=== PATIENT | male | born 1965 | race Asian ===

== ENCOUNTER → 2021-03-28 07:37 | Outpatient (CLI) | payer OTHER, SELFPAY ==
--- NOTE | ~2021-03-28 | US_ITS ---
EXAMINATION: US abdomen complete EXAM DATE: 03/28/2021 08:17 INDICATION: High bilirubin . TECHNIQUE: Multiple grayscale and Doppler images of the complete abdomen were obtained (by a technolo gist who performed the scan) and subsequently reviewed. There is no prior study for comparison. FINDINGS: The abdominal aorta is normal in caliber. Visualized portion IVC is patent. The pancreatic head a nd body are normal in appearance. The pancreatic tail is not visualized. The liver has normal echogenicity and contour. There are no focal liver lesions identified. There is no evidence of intrahepatic biliary duct dilation. Portal venous flow was seen in the hepatopedal , normal direction and has normal Doppler waveform. Common bile duct measures 3 mm, which is normal. The gallbladder wall is normal in thickness, with ex pected amount of distention. No sonographic evidence of pericholecystic fluid. There is no cholelit hiases. Technologist performing exam reports patient did not demonstrate sonographic Cameron's sign. Please note that this sign is less reliable in patients who have received pain medication. Right kidney: There is normal contour and echogenicity. It measures 11.7 x 5.0 x 6.3 centimeters. T here is a 1.8 cm cyst. There is no hydronephrosis. Left kidney: There is normal contour and echogenicity. It measures 13.3 x 5.3 x 5.6 centimeters. T here are no focal renal lesions identified. There is no hydronephrosis. The spleen measures 9.6 centimeters and is morphologically normal. IMPRESSION: Unremarkable complete abdominal ultrasound exam. Reviewed, dictated and finalized at location A. [employer]ATER
== END ==
PROVIDERS: PCP Emergency Medicine; Visit Provider Emergency Medicine
DX: E80.6 Other disorders of bilirubin metabolism (principal)
CPT/HCPCS: 76700

== ENCOUNTER 2022-02-26 02:15 | Day surgery (SDC) | payer OTHER, SELFPAY ==
[2022-02-07 15:08] VITALS: BMI 25.8
[2022-02-26 06:46] VITALS: BP 152/101; PULSE 89; RESP 16; TEMP 36.4; O2SAT 100; BMI 25.8
[2022-02-26] MEDS: LACTATED RINGERS 1,000 ML 150 ML IV CONT (06:55)
--- NOTE | 2022-02-26 07:32 | WPDANESEPPF ---
Anes - Initial Pre Proc Eval Procedure: Operation Date: 02/26/22 08:00 Proposed Procedures p Screening Colonoscopy - Jaylan Guo MD Date/Time: 02/26/22 07:32 Surgeon: Jaylan Guo MD Pre Op Diagnosis: hx colon polyps Patient Data Age: 56 Gender: M Height: 1.73 m Weight: 77.1 kg Last Vital Signs Temp 36.4 C L 02/26/22 06:46 Pulse 89 02/26/22 06:46 Resp 16 02/26/22 06:46 BP 152/101 H 02/26/22 06:46 Pulse Ox 100 02/26/22 06:46 O2 Del Method Room Air 02/26/22 06:46 Allergies Allergy/AdvReac Type Severity Reaction Status Date / Time No Known Drug Allergies Allergy Unknown Unknown Verified 02/26/22 06:45 Home Medications Medication Instructions Recorded Confirmed Type rosuvastatin 10 mg tablet 10 mg PO DAILY 02/07/22 02/26/22 History Patient hx anesthesia problems: none Family hx anesthesia problems: none Results Review: All pre-operative results and documents have been reviewed as part of the pre-operative evaluation. [facility] Past Medical History Medical History (Updated 02/26/22 @ 07:35 by Mark Talley MD) Hyperlipidemia Surgical History Surgical History (Updated 02/26/22 @ 07:35 by Mark Talley MD) H/O colonoscopy History of appendectomy Social History Social History Smoking status: Never smoker Alcohol intake: current Substance use: never Substance use type: does not use Living arrangements: with family Spiritual care concerns: No Anes - Eval Final PreProcedure Day of Procedure 02/26/22 07:32 Patient weight: normal Heart: regular rate and rhythm Lungs: clear to auscultation Airway: Mallampati scale class II Neurological: alert and oriented Last oral intake: >/= 8 hours ASA classification: II Emergent: no Anesthetic plan: proceed Anesthesia type and monitoring: general GIVS and standard monitoring Results Review: All pre-operative results and documents have been reviewed as part of the pre-operative evaluation. Informed Consent: The patient's anesthetic plan and its attendant risks and benefits were discussed with the patient/family/POA. Questions were solicited and answers provided to the satisfaction of the patient/family/POA.
--- NOTE | 2022-02-26 07:44 | PM.HPGS ---
History of Present Illness History of Present Illness Consent: Risks, benefits, and alternatives have been discussed and questions answered. Patient agrees to proceed with procedure. Chief complaint: hx colon polyps Narrative: Sabino Carson is a 56 year old male here for screening colonoscopy, had polyps in 2019 Review of Systems Constitutional: Constitutional: Denies headache(s) and Denies weakness Eyes: Eyes: Denies blurry vision ENT: Reports Normal hearing present, Denies headache(s) and Denies neck pain Cardiovascular: Cardiovascular: Denies chest pain and Denies dyspnea Respiratory: Respiratory: Denies dyspnea Gastrointestinal: Gastrointestinal: Reports no additional gastrointestinal complaints Genitourinary: Genitourinary: Denies dysuria Musculoskeletal: Musculoskeletal: Denies neck pain Integumentary/Breasts: Skin/Breast: Denies dry skin Neurologic: Reports Normal hearing present, Denies headache(s) and Denies weakness Psychiatric: Psychiatric: Denies anxiety Endocrine: Endocrine: Denies change in body appearance Hematologic/Lymphatic: Hematologic/Lymphatic: Denies easy bleeding Allergic/Immunologic: Allergic/Immunologic: Denies urticaria PMFSH Past Medical History Medical History (Updated 02/26/22 @ 07:45 by Jaylan Guo MD) Colon cancer screening Hyperlipidemia Surgical History Surgical History (Updated 02/26/22 @ 07:35 by Mark Talley MD) H/O colonoscopy History of appendectomy Social History Social History Smoking status: Never smoker Alcohol intake: current Substance use: never Substance use type: does not use Living arrangements: with family Spiritual care concerns: No Meds Home Medications and Allergies Home Medications Medication Instructions Recorded Confirmed Type rosuvastatin 10 mg tablet 10 mg PO DAILY 02/07/22 02/26/22 History Allergies Allergy/AdvReac Type Severity Reaction Status Date / Time No Known Drug Allergies Allergy Unknown Unknown Verified 02/26/22 06:45 Vital Signs Vital Signs - 24 hr 02/26/22 06:46 Temperature 97.5 F L Pulse Rate 89 Respiratory Rate 16 Blood Pressure 152/101 H Pulse Oximetry 100 Oxygen Delivery Room Air Exam Const: General: comfortable and no acute distress HENMT: Face/Nose/Sinus: Normal nares present Eyes: General: appearance normal, both eyes and all related structures Neck: Neck: no JVD Resp: Auscultation: clear to auscultation bilaterally Cardio: Rate: regular rate Rhythm: regular rhythm GI: Inspection: non-distended GI Palp: Yes Soft to palpation Skin: General skin exam: normal color Neuro: General: gait normal Speech: normal speech Extrem: General: normal to inspection Psych: Mental Status: mental status grossly normal Assessment and Plan Assessment and plan (1) Colon cancer screening: Code(s): Z12.11 - Encounter for screening for malignant neoplasm of colon Status: Acute Assessment and Plan: colonoscopy
[2022-02-26 08:06] VITALS: BP 111/75; PULSE 75; RESP 26; O2SAT 98
[2022-02-26 08:16] VITALS: BP 120/85; PULSE 70; RESP 18; O2SAT 98
[2022-02-26 08:26] VITALS: BP 127/90; PULSE 71; RESP 14; O2SAT 98
== END 2022-02-26 08:35 | disposition home or self-care (01) ==
PROVIDERS: PCP Emergency Medicine; Visit Provider Internal Medicine Gastroenterology
PROC: 0DJD8ZZ Inspection of Lower Intestinal Tract, Via Natural or Artificial Opening Endoscopic (ICD-10-PCS; CPT 45378; principal; 2022-02-26 08:00)
DX: Z12.11 Encounter for screening for malignant neoplasm of colon (principal); D12.3 Benign neoplasm of transverse colon; D12.4 Benign neoplasm of descending colon; K63.5 Polyp of colon; K64.8 Other hemorrhoids; E78.5 Hyperlipidemia, unspecified
CPT/HCPCS: 45385; 88305; J2704; J7120

== ENCOUNTER 2023-07-11 08:09 | Outpatient (CLI) | payer OTHER, SELFPAY ==
--- NOTE | ~2023-07-11 | MR_ITS ---
EXAMINATION: MR cervical spine wo con DATE: 07/11/2023 09:06 INDICATION: Cervical stenosis present with neck pain and right shoulder and arm pain. TECHNIQUE: Magnetic resonance imaging (MRI) of the cervical spine was performed without intravenous c ontrast. Sequences included sagittal T2-weighted FSE, sagittal T2-weighted FS FSE, sagittal T1-weight ed FSE, axial MERGE and axial T2-weighted FSE. COMPARISON: None FINDINGS: Bone alignment is normal. Vertebral body heights are normal. Bone marrow signal intensity is normal . Mild disc height loss at C3-C4 and C4-C5 and moderate disc height loss at C5-C6. Cord signal intens ity is normal. Cervical soft tissues are unremarkable. The following disc levels are specifically dis cussed: C2-C3: The disc does not extend beyond the endplate margin. There is no uncovertebral joint osteoarth ritis. There is no facet joint osteoarthritis. There is no neural foraminal stenosis. There is no michelle tral canal stenosis. C3-C4: Annular fissure and small central disc extrusion with disc material extending up to 4 mm cepha lad to the level of the inferior endplate of C3. There is mild bilateral uncovertebral joint osteoart hritis. There is minimal bilateral facet joint osteoarthritis. There is mild right neural foraminal s tenosis. There is mild central canal stenosis with mild indentation of the central ventral surface of the cord. C4-C5: Annular fissure and small central disc protrusion. There is mild bilateral uncovertebral joint osteoarthritis. There is mild bilateral facet joint osteoarthritis. There is mild right neural michael inal stenosis. There is mild central canal stenosis. C5-C6: Annular fissure and moderate sized right foraminal zone disc extrusion which extends a couple millimeter cephalad and caudal to the level of the endplates, moderately narrowing the right lateral recess and indenting the right ventral surface of the cord. There is mild left and severe right uncov ertebral joint osteoarthritis. There is mild bilateral facet joint osteoarthritis. There is mild left and moderate right neural foraminal stenosis. There is mild right-sided predominant central canal st enosis. C6-C7: Annular fissure and very small right paracentral disc protrusion. There is mild bilateral unco vertebral joint osteoarthritis. There is mild bilateral facet joint osteoarthritis. There is minimal bilateral neural foraminal stenosis. There is no central canal stenosis. C7-T1: The disc does not extend beyond the endplate margin. There is no uncovertebral joint osteoarth ritis. There is mild to moderate bilateral facet joint osteoarthritis. There is no neural foraminal s tenosis. There is no central canal stenosis. IMPRESSION: 1. Mild to moderate cervical spondylosis most notable for moderate disc height loss and moderate size d right foraminal zone disc extrusion at C5-C6. Reviewed, dictated and finalized at location B. IMPRESSION: 1. Mild to moderate cervical spondylosis most notable for moderate disc height loss and moderate sized right foraminal zone disc extrusion at C5-C6.
== END 2023-07-11 08:10 ==
LOC: GOSHIMG 08:11
PROVIDERS: PCP Emergency Medicine
DX: M48.02 Spinal stenosis, cervical region (principal); M47.892 Other spondylosis, cervical region; M50.222 Other cervical disc displacement at C5-C6 level
CPT/HCPCS: 72141